=== PATIENT | male | born 1965 | race African-American/Black ===

== ENCOUNTER 2016-06-01 12:47 | Emergency (ER) | payer OTHER ==
[2016-06-01 12:54] VITALS: BP 136/85; PULSE 70; TEMP 98.1; BMI 25.4
--- NOTE | 2016-06-01 12:59 | PDOC ---
History of Present Illness - General Chief Complaint: Rectal Bleed Stated Complaint: BLOOD IN STOOL Time Seen by Provider: 06/01/16 12:58 History Source: Patient Exam Limitations: No Limitations - History of Present Illness Initial Comments: 50 yo M hx recent biceps tendon repair presents with rectal bleeding x1 day. He states that he was wiping this morning, then noticed that there was blood on the paper twice. He also noticed it in the toilet bowl as well. He denies SOB, weakness, fatigue, cp. No prior similar symptoms. Denies abd pain. He was previously on opioid pain medication after his surgery, but stopped it after a few days, has not needed it. Denies constipation or recent straining. No history of hemorrhoids. Past History - Past Medical History Allergies/Adverse Reactions: Allergies Allergy/AdvReac Type Severity Reaction Status Date / Time No Known Drug Allergies Allergy Verified 06/01/16 12:49 Home Medications: Ambulatory Orders Acetaminophen W/ Codeine #3 [Tylenol # 3 -] 1 tab PO Q6H PRN 06/01/16 Ketorolac Tromethamine [Toradol] 10 mg PO TID 06/01/16 Oxycodone Sr [Oxycontin] 5 mg PO ONCE 06/01/16 Anemia: No Asthma: No Cancer: No Cardiac Disorders: No CVA: No COPD: No CHF: No Dementia: No Diabetes: No GI Disorders: No Disorders: No HTN: No Hypercholesterolemia: No Liver Disease: No Suicide Attempt (Hx): No Seizures: No Thyroid Disease: No - Surgical History Abdominal Surgery: No Appendectomy: No Cardiac Surgery: No Cholecystectomy: No Lung Surgery: No Neurologic Surgery: (back) Orthopedic Surgery: Yes (right and left rotator cuff repair 2010, lumbar spine discectomy/fusion andi) - Immunization History Td Vaccination: (UNKNOWN) TDAP Vaccination: Yes Immunization Up to Date: Yes - Psycho/Social/Smoking Cessation Hx Anxiety: No Suicidal Ideation: No Smoking Status: Yes Smoking History: Former smoker Have you smoked in the past 12 months: No Number of Cigarettes Smoked Daily: 0 If you are a former smoker, when did you quit?: 2001 Information on smoking cessation initiated: No Hx Alcohol Use: No Drug/Substance Use Hx: No Substance Use Type: None Hx Substance Use Treatment: Yes (AA) Review of Systems - Review of Systems Able to Perform ROS?: Yes Comments:: GENERAL/CONSTITUTIONAL: No fever or chills. No weakness. HEAD, EYES, EARS, NOSE AND THROAT: No change in vision. No ear pain or discharge. No sore throat. CARDIOVASCULAR: No chest pain or shortness of breath. RESPIRATORY: No cough, wheezing, or hemoptysis. GASTROINTESTINAL: No nausea, vomiting, diarrhea or constipation. +Blood in stool. GENITOURINARY: No dysuria, frequency, or change in urination. MUSCULOSKELETAL: No joint or muscle swelling or pain. No neck or back pain. SKIN: No rash NEUROLOGIC: No headache, vertigo, loss of consciousness, or change in strength/ sensation. ENDOCRINE: No increased thirst. No abnormal weight change. HEMATOLOGIC/LYMPHATIC: No anemia, easy bleeding, or history of blood clots. ALLERGIC/IMMUNOLOGIC: No hives or skin allergy. *Physical Exam - Vital Signs Last Vital Signs Temp Pulse Resp BP Pulse Ox 98.1 F 70 18 136/85 100 06/01/16 12:48 06/01/16 12:48 06/01/16 12:48 06/01/16 12:48 06/01/16 12:48 - Physical Exam Comments: GENERAL: Awake, alert, and fully oriented, in no acute distress HEAD: No signs of trauma EYES: PERRLA, EOMI, sclera anicteric, conjunctiva clear ENT: Auricles normal inspection, hearing grossly normal, nares patent, oropharynx clear without exudates. Moist mucosa NECK: Normal ROM, supple, no lymphadenopathy, JVD, or masses LUNGS: Breath sounds equal, clear to auscultation bilaterally. No wheezes, and no crackles HEART: Regular rate and rhythm, normal S1 and S2, no murmurs, rubs or gallops ABDOMEN: Soft, nontender, normoactive bowel sounds. No guarding, no rebound. No masses EXTREMITIES: Normal range of motion, no edema. No clubbing or cyanosis. No cords, erythema, or tenderness NEUROLOGICAL: Cranial nerves II through XII grossly intact. Normal speech, normal gait SKIN: Warm, Dry, normal turgor, no rashes or lesions noted. RECTAL: +Small non-thrombosed hemorrhoid in the 6 o'clock position. No internal hemorrhoids. Brown stool, slight tinge of blood. *DC/Admit/Observation/Transfer Diagnosis at time of Disposition: Hemorrhoid Qualifiers: Hemorrhoid type: unspecified Qualified Code(s): K64.9 - Unspecified hemorrhoids - Discharge Dispostion Disposition: HOME Condition at time of disposition: Stable Admit: No - Referrals Referrals: Christopher Brown MD [Primary Care Provider] - - Patient Instructions Printed Discharge Instructions: DI for Hemorrhoids Additional Instructions: APPLY TUCKS PADS OR WITCH PAO FOR IRRITATION. PREPARATION H DIRECTED TO HELP THE HEMORRHOID SHRINK. SITZ BATHS (INQUIRE IN THE PHARMACY) TO HELP THE HEMORRHOID SHRINK, WELL.
== END 2016-06-01 13:50 | disposition home or self-care (01) ==
LOC: FER 12:47
DX: K64.9 Unspecified hemorrhoids (principal); Z87.891 Personal history of nicotine dependence
CPT/HCPCS: 82272; 99282-25

== ENCOUNTER 2017-04-14 10:40 | Day surgery (SDC) | payer OTHER ==
[2017-04-12 15:16] VITALS: BMI 24.3
[~2017-04-14 10:40] MED LIST: BUPIVACAINE HCL/PF 0.5% (5MG/ML) 10 ML VIAL IJ ONE
[2017-04-14] MEDS ORDERED: ONDANSETRON 4 MG/2 ML VIAL IVPUSH PRN (12:05)
[2017-04-14] MEDS ORDERED: PROMETHAZINE HCL 25 MG/1 ML VIAL IVPUSH PRN (12:05)
[2017-04-14] MEDS ORDERED: LACTATED RINGERS SOLUTION 1,000 ML IV SCH (12:15)
--- NOTE | 2017-04-14 12:58 | HP ---
History & Physical Update - History History: No Change - Physical Physical: No Change - Assessment Assessment: No Change - Plan Plan: No Change
[2017-04-14] MEDS ORDERED: ceFAZolin SODIUM 1 GM VIAL IVPB ONE (13:12)
[2017-04-14] MEDS ORDERED: KETOROLAC TROMETHAMINE 30 MG/1 ML VIAL ONE (13:59)
[2017-04-14] MEDS ORDERED: BUPIVACAINE HCL/PF 0.5% (5MG/ML) 10 ML VIAL IJ ONE (14:13)
--- NOTE | 2017-04-14 14:36 | OP ---
Operative Note - Note: Operative Date: 04/14/17 Pre-Operative Diagnosis: Incarcerated right inguinal hernia. Operation: Repair of incarcerated right inguinal hernia with plug and mesh. Findings: Indirect hernia with sac Post-Operative Diagnosis: Same as Pre-op Surgeon: Brittnee Macario Anesthesiologist/INTEGRATION DIRECTOR: Ashok Mas Specimens Removed: Indirect sac. Estimated Blood Loss (mls): 10 Operative Report Dictated: Yes
--- NOTE | 2017-04-14 15:32 | OP ---
DATE OF OPERATION: 04/14/2017 PREOPERATIVE DIAGNOSIS: Incarcerated right inguinal hernia. POSTOPERATIVE DIAGNOSIS: Incarcerated right inguinal hernia. PROCEDURE PERFORMED: Repair of incarcerated right inguinal hernia with plug and mesh. SURGEON: Tamera Macario MD ANESTHESIA: General anesthesia. ANESTHESIOLOGIST: Ashok Mas MD ESTIMATED BLOOD LOSS: 10 mL. INDICATIONS: This 51-year-old man had pain and swelling in the right groin, which was bothering him. He had recurrent incarcerations in the right groin, with swelling and pain. The patient was brought in for repair of the hernia. Consent was obtained. The risks, benefits and complications were discussed with the patient. DESCRIPTION OF PROCEDURE: The patient was brought to the operating room. He was given general anesthesia. The right groin was painted and draped. He was given 1 gram of Ancef. An incision was made in the right groin in the skin crease. This was deepened through the skin, subcutaneous tissue and Dorothy fascia. A time-out was called out was called before the skin incision. The external oblique aponeurosis was then incised along the direction of its fibers to open the inguinal canal. The ilioinguinal nerve and iliohypogastric nerves were identified and protected throughout the procedure. There was no direct defect. The muscles were intact. The cord structures were then isolated around an 1/2-inch Vermillion drain. The internal and external cremasteric muscles and fascia were then incised, and the cord structures identified. An indirect sac was then identified. This was from the cord structures all the way down to the internal ring. The sac was then suture ligated at the level of the internal ring with two 3-0 Vicryl sutures. The sac distal to the ligature was divided and sent to Pathology as a specimen. The sac was then from the posterior wall of the groin circumferentially and pushed cephalad. A large plug was then inserted through the internal ring. This was placed behind the transversus fascia. This was anchored with two 2-0 Prolene sutures. The sutures were passed through the internal oblique and transversus abdominis muscle, brought through the internal ring, caught the outer leaf of the mesh, and was reinserted through the internal ring and brought through the transversalis fascia and muscle and internal oblique muscle and fascia. There were 2 sutures placed, one above and lateral to the internal ring, and the other above and medial to the internal ring. The plug was then inserted through the internal ring and placed behind the transversalis fascia. A large mesh was then placed over the internal oblique muscle. This was anchored at the level of the pubic tubercle with 2-0 Prolene sutures. The inferior leaf of the mesh was placed over the shelving edge of the inguinal ligament. This was anchored with the VersaTack tacking device. The superior leaf of the mesh was placed over the internal oblique muscle and the Prolene suture holding the plug behind the abdominal wall was brought through the mesh and a knot was fashioned. The lateral Prolene suture was brought through both limbs of the mesh as it was brought over the internal ring. Then a knot was fashioned, thus creating a new internal ring. was adequately repaired. Hemostasis was satisfactory. Then 0.5% Marcaine was injected into the wound and around the ilioinguinal nerve and iliohypogastric nerves. The external oblique aponeurosis was then reapproximated with continuous 3-0 Vicryl sutures and a new external ring was created. Care was taken not to make this ring too tight and not to occlude the and the blood supply to the cord structures and in the cord structures. Dorothy fascia was approximated with buried interrupted 3-0 Vicryl sutures. The dermal layer was approximated with buried interrupted 3-0 Vicryl sutures and the skin was approximated with continuous 4-0 Monocryl sutures in a running subcuticular fashion. Dermabond was applied across the skin edges. Sponge count and instrument count were correct. The patient was extubated and sent to the recovery room in satisfactory and stable condition. Neena [id number]
[2017-04-14 16:33] VITALS: TEMP 98.7
[2017-04-14 17:39] VITALS: BP 119/70; PULSE 63
--- NOTE | 2017-04-19 15:14 | PATH ---
Surgical Pathology Report Patient Name: CHERI LIMON [facility]. Rec. #: [id number] /Age/Gender: 1965 (Age: 51) / M Account: [id number] Location: [facility] SURGICAL Taken: 04/14/2017 Received: 04/18/2017 Reported: 04/19/2017 Physicians: Tamera Macario M.D. Specimen(s) Received RIGHT INGUINAL HERNIA SAC Clinical History Incarcerated right inguinal hernia Final Diagnosis INGUINAL HERNIA SAC, RIGHT, EXCISION: DENSE FIBROCONNECTIVE AND ADIPOSE TISSUE CONSISTENT WITH HERNIA SAC. Electronically Signed Lolis Salvador M.D. Gross Description Received in formalin labeled "right inguinal hernia sac," is a 5.3 x 0.6 x 0.2 cm portion of ko bowling fibromembranous tissue, consistent with a hernia sac. The specimen is entirely submitted in one cassette. 04/18/201704/18/2017
== END 2017-04-14 17:50 | disposition home or self-care (01) ==
LOC: JASU-SURG 10:40
PROVIDERS: ATTEND Specialist
PROC: 0YU50JZ Supplement Right Inguinal Region with Synthetic Substitute, Open Approach (ICD-10-PCS; principal; 2017-04-14 12:00)
DX: K40.30 Unilateral inguinal hernia, with obstruction, without gangrene, not specified as recurrent (principal)
CPT/HCPCS: 88302-TC; 94760

== ENCOUNTER 2020-04-01 11:18 | Emergency (ER) | payer OTHER ==
[2020-04-01 11:25] VITALS: BP 125/93; PULSE 70; TEMP 98.5; BMI 24.3
[2020-04-01] MEDS ORDERED: DIPHTH,PERTUSS(ACELL),TET 0.5 ML DISP.SYRIN IM ONE ×2 (12:02→12:04)
== END 2020-04-01 12:41 | disposition home or self-care (01) ==
LOC: JERFT 11:18
PROC: 0HQFXZZ Repair Right Hand Skin, External Approach (ICD-10-PCS; principal; 2020-04-01)
PROC: 3E0234Z Introduction of Serum, Toxoid and Vaccine into Muscle, Percutaneous Approach (ICD-10-PCS; 2020-04-01)
DX: S61.011A Laceration without foreign body of right thumb without damage to nail, initial encounter (principal)
CPT/HCPCS: 90715; 99284-25

== ENCOUNTER 2020-06-30 05:44 | Day surgery (SDC) | payer OTHER ==
[2020-06-24 12:16] VITALS: BMI 25.4
[2020-06-30] MEDS ORDERED: DEXAMETHASONE SOD PHOSPHATE 10 MG/1 ML VIAL ONE (07:25)
[2020-06-30] MEDS ORDERED: MIDAZOLAM HCL 2 MG/2 ML SINGLE DOSE VIAL ONE ×2 (07:25→07:40)
[2020-06-30] MEDS ORDERED: ROPIVACAINE HCL 0.5% 30ML VIAL ONE (07:25)
[2020-06-30] MEDS ORDERED: ONDANSETRON 4 MG/2 ML VIAL ONE (07:40)
[2020-06-30] MEDS ORDERED: DEXAMETHASONE SOD PHOSPHATE 4 MG/1 ML VIAL ONE (07:40)
[2020-06-30] MEDS ORDERED: ceFAZolin SODIUM 1 GM VIAL ONE ×2 (07:40→08:21)
[2020-06-30] MEDS ORDERED: PROPOFOL 20 ML ONE ×2 (07:40)
[2020-06-30] MEDS ORDERED: LIDOCAINE HCL/PF 2% SDV 5ML VIAL ONE (07:40)
[2020-06-30] MEDS ORDERED: LABETALOL HCL 5 MG/1 ML (100MG/20 ML VIAL) ONE (08:21)
[2020-06-30] MEDS ORDERED: hydrALAZINE HCL 20 MG/ML VIAL ONE (08:21)
[2020-06-30] MEDS ORDERED: GLYCOPYRROLATE 0.2 MG/1 ML VIAL ONE (08:22)
[2020-06-30] MEDS ORDERED: oxyCODONE HCL 5 MG TABLET PO PRN (08:53)
[2020-06-30] MEDS ORDERED: ONDANSETRON 4 MG/2 ML VIAL IVPUSH PRN (08:53)
[2020-06-30] MEDS ORDERED: LACTATED RINGERS SOLUTION 1,000 ML IV SCH (09:00)
[2020-06-30 09:58] VITALS: TEMP 98.2
[2020-06-30 12:30] VITALS: BP 128/82; PULSE 54
== END 2020-06-30 11:10 | disposition home or self-care (01) ==
LOC: FASU 05:44
PROVIDERS: ATTEND Orthopaedic Surgery
PROC: 0LM24ZZ Reattachment of Left Shoulder Tendon, Percutaneous Endoscopic Approach (ICD-10-PCS; principal; 2020-06-30 08:00)
PROC: 0RHK44Z Insertion of Internal Fixation Device into Left Shoulder Joint, Percutaneous Endoscopic Approach (ICD-10-PCS; 2020-06-30 08:00)
DX: M75.122 Complete rotator cuff tear or rupture of left shoulder, not specified as traumatic (principal)
CPT/HCPCS: 29827; C1713; 94760; J1100